=== PATIENT | female | born 1990 | race American Indian/Alaskan Native ===

== ENCOUNTER 2021-07-04 08:00 | Outpatient (CLI) | payer OTHER | END 2021-07-04 08:30 | disposition home or self-care (01) | LOC: PPH VACUNA 08:00 | PROVIDERS: ATTEND Emergency Medicine Pediatric Emergency Medicine | DX: Z23 Encounter for immunization (principal) ==

== ENCOUNTER 2022-11-28 09:05 | Outpatient (CLI) | payer OTHER | END 2022-11-28 09:12 | disposition home or self-care (01) | LOC: RAD 09:05 | DX: M54.2 Cervicalgia (principal); M99.01 Segmental and somatic dysfunction of cervical region; M54.6 Pain in thoracic spine; M99.02 Segmental and somatic dysfunction of thoracic region; M54.50 Low back pain, unspecified; M99.03 Segmental and somatic dysfunction of lumbar region; M62.830 Muscle spasm of back; M99.04 Segmental and somatic dysfunction of sacral region ==

== ENCOUNTER 2022-12-24 15:49 | Emergency (ER) | payer OTHER ==
[~2022-12-24] VITALS: Ht 170.2 cm; Wt 72.6 kg
== END 2022-12-24 17:30 | disposition home or self-care (01) ==
LOC: ER 15:49
DX: U07.1 COVID-19 (principal)

== ENCOUNTER 2023-02-27 01:30 | Outpatient (CLI) | payer OTHER | END 2023-02-27 01:40 | disposition home or self-care (01) | LOC: PPH VACUNA 01:30 | PROVIDERS: ATTEND Emergency Medicine Pediatric Emergency Medicine | DX: Z23 Encounter for immunization (principal) | CPT/HCPCS: 90686; G0008 ==

== ENCOUNTER 2023-11-25 07:05 | Outpatient (CLI) | payer OTHER ==
[2023-11-25 09:06] LABS: T4 FREE 1.22 NG/ML (0.76-1.46)
[2023-11-25 09:10] LABS: TSH < 0.005 uIU/mL (0.358-3.74)
== END 2023-11-25 07:06 | disposition home or self-care (01) ==
LOC: LAB 07:05
PROVIDERS: ATTEND Obstetrics & Gynecology
DX: E03.9 Hypothyroidism, unspecified (principal); E05.00 Thyrotoxicosis with diffuse goiter without thyrotoxic crisis or storm

== ENCOUNTER 2024-01-15 09:50 | Outpatient (CLI) | payer OTHER ==
[2024-01-15 10:11] LABS: HEMATOCRIT 37.7 % (36.0-45.00); HEMOGLOBIN 12.8 g/dL (12.0-15.00); MEAN CELL VOLUME 83.9 fL (80.00-100.00); MEAN CORPUSCULAR HEMOGLOBIN 28.6 pg (27.00-32.0); PLATELET COUNT 229 K/uL (150-450); RED BLOOD COUNT 4.49 M/uL (4.00-6.00); RED CELL DISTRIBUTION WIDTH 13.4 % (11.5-14.5)
[2024-01-15 10:34] LABS: INR 1.05; PARTIAL THROMBOPLASTIN TIME 30.2 SECONDS (22.0-34.0); PROTHROMBIN TIME 11.4 SECONDS (9.0-11.5)
== END 2024-01-15 09:55 | disposition home or self-care (01) ==
LOC: LAB 09:50
DX: R79.1 Abnormal coagulation profile (principal); Z01.812 Encounter for preprocedural laboratory examination

== ENCOUNTER 2024-02-12 09:33 | Outpatient (CLI) | payer OTHER ==
[2024-02-12 10:11] LABS: URINE BILIRRUBIN Negative (NEGATIVE); URINE BLOOD Negative; URINE COLOR Dark Yellow; URINE GLUCOSE Negative (NEGATIVE); URINE KETONE Negative (NEGATIVE); URINE LEUKOCYTE Trace; URINE NITRATE Negative; URINE PROTEIN Trace (NEGATIVE); URINE UROBILINOGEN 0.2 E.U./dl
[2024-02-12 10:16] LABS: URINE BACTERIA 1635.3 uL (0.0-1933); URINE EPITHELIAL CELLS 72.9 uL (0.0-38.8); URINE RBC 16.6 uL (0.0-20.8); URINE WBC 33.3 uL (0.0-23.2)
[2024-02-12 10:22] LABS: URINE APPEARANCE CLEAR; URINE CAST 0.15 uL (0.0-1.40)
[2024-02-12 10:43] LABS: HEMATOCRIT 37.1 % (36.0-45.00); HEMOGLOBIN 12.8 g/dL (12.0-15.00); MEAN CELL VOLUME 83.6 fL (80.00-100.00); MEAN CORPUSCULAR HEMOGLOBIN 28.8 pg (27.00-32.0); MEAN CORPUSCULAR HGB CONC 34.4 g/dl (32.0-36.0); PLATELET COUNT 256 K/uL (150-450); RED BLOOD COUNT 4.44 M/uL (4.00-6.00); RED CELL DISTRIBUTION WIDTH 13.5 % (11.5-14.5)
[2024-02-12 11:32] LABS: ANION GAP 8 (10.0-20.0); BLOOD UREA NITROGEN 10 mg/dL (7-18); BUN CREA RATIO 13 (7.0-25.0); CALCIUM 8.7 mg/dL (8.5-10.1); CARBON DIOXIDE 29 mEq/L (21-32); CHLORIDE 108 mmol/L (98-107); CHOL HDL RATIO 3.3 (0-5.0); CHOLESTEROL 143 mg/dL (0-200); CREATININE SERUM 0.76 mg/dL (0.55-1.02); GFR 88.76; GLUCOSE FASTING 90 mg/dL (65-100); HDL 43 mg/dl (40-60); LDL 74 mg/dl (0-130); OSMOLALITY SERUM 280 MOSM/KG (275-295); POTASSIUM 3.72 mEq/L (3.5-5.1); SODIUM 141 mmol/L (136-145); TRIGLYCERIDES 130 mg/dL (0-150); VLDL 26 (0-39)
[2024-02-12 11:33] LABS: TSH < 0.005 uIU/mL (0.358-3.74)
== END 2024-02-12 09:34 | disposition home or self-care (01) ==
LOC: LAB 09:33
PROVIDERS: ATTEND Internal Medicine
DX: N39.0 Urinary tract infection, site not specified (principal); R73.09 Other abnormal glucose; E78.5 Hyperlipidemia, unspecified; Z13.29 Encounter for screening for other suspected endocrine disorder; R79.9 Abnormal finding of blood chemistry, unspecified; D50.9 Iron deficiency anemia, unspecified; Z13.1 Encounter for screening for diabetes mellitus; Z13.220 Encounter for screening for lipoid disorders; R94.6 Abnormal results of thyroid function studies; Z13.228 Encounter for screening for other metabolic disorders

== ENCOUNTER 2024-02-18 09:46 | Outpatient (CLI) | payer OTHER | END 2024-02-18 10:00 | disposition home or self-care (01) | LOC: PPH VACUNA 09:46 | PROVIDERS: ATTEND Emergency Medicine Pediatric Emergency Medicine | DX: Z23 Encounter for immunization (principal) ==

== ENCOUNTER 2024-06-10 07:29 | Outpatient (CLI) | payer OTHER | END 2024-06-10 07:30 | disposition home or self-care (01) | LOC: NUCLEAR 07:29 | PROVIDERS: ATTEND Internal Medicine | DX: E05.90 Thyrotoxicosis, unspecified without thyrotoxic crisis or storm (principal) ==

== ENCOUNTER → 2024-06-11 07:18 | Outpatient (CLI) | payer OTHER | END | disposition home or self-care (01) | LOC: NUCLEAR 07:00 | PROVIDERS: ATTEND Internal Medicine | DX: E05.90 Thyrotoxicosis, unspecified without thyrotoxic crisis or storm (principal) ==

== ENCOUNTER → 2024-07-09 08:42 | Outpatient (CLI) | payer OTHER ==
[2024-07-09 09:26] LABS: HEMATOCRIT 34.7 % (36.0-45.00); HEMOGLOBIN 12.5 g/dL (12.0-15.00); MEAN CELL VOLUME 83.7 fL (80.00-100.00); MEAN CORPUSCULAR HEMOGLOBIN 30.1 pg (27.00-32.0); PLATELET COUNT 232 K/uL (150-450); RED BLOOD COUNT 4.15 M/uL (4.00-6.00)
[2024-07-09 10:52] LABS: ALBUMIN 3.7 gm/dL (3.4-5.0); BILIRUBIN TOTAL 0.35 mg/dL (0.3-1.2); CALCIUM 8.6 mg/dL (8.5-10.1); CHOL HDL RATIO 3.1 (0-5.0); CREATININE SERUM 0.84 mg/dL (0.55-1.02); GFR 79.08; GLOBULINA 3.7 G/DL (2.4-3.5); POTASSIUM 4.05 mEq/L (3.5-5.1); T4 FREE 0.88 NG/ML (0.76-1.46); TOTAL PROTEIN 7.4 gm/dL (6.4-8.2)
[2024-07-09 10:58] LABS: TSH 0.278 uIU/mL (0.358-3.74)
== END | disposition home or self-care (01) ==
LOC: LAB 08:42
PROVIDERS: ATTEND Internal Medicine
DX: E11.65 Type 2 diabetes mellitus with hyperglycemia (principal); E03.8 Other specified hypothyroidism; E78.5 Hyperlipidemia, unspecified; I10 Essential (primary) hypertension; E03.9 Hypothyroidism, unspecified; E11.8 Type 2 diabetes mellitus with unspecified complications

== ENCOUNTER 2024-10-12 07:36 | Outpatient (CLI) | payer OTHER ==
[2024-10-12 08:02] LABS: BASO % 0.3 % (0.1-1.2); EOS # 0.13 (0.04-0.54); EOS % 2.1 % (0.7-7.0); HEMATOCRIT 35.9 % (34.1-44.9); LYMPH # 1.82 (1.18-3.74); LYMPH % 29.3 % (19.3-53.1); MEAN CORPUSCULAR HEMOGLOBIN 28.2 pg (25.6-32.2); MONO % 6.4 % (4.7-12.5); NEUT # 3.83 (1.56-6.13); NEUT % 61.7 % (34.0-71.1); PLATELET COUNT 250 K/uL (163-369); RED BLOOD COUNT 4.25 M/uL (3.93-5.22); RED CELL DISTRIBUTION WIDTH 11.7 % (11.6-14.4)
[2024-10-12 08:54] LABS: PH,URINE 5.5 (5.0-8.0); URINE APPEARANCE Clear; URINE BILIRRUBIN Negative (NEGATIVE); URINE BLOOD Negative; URINE COLOR Yellow; URINE GLUCOSE Negative (NEGATIVE); URINE KETONE Trace (NEGATIVE); URINE LEUKOCYTE Negative; URINE NITRATE Negative; URINE PROTEIN Trace (NEGATIVE); URINE UROBILINOGEN 0.2 E.U./dl
[2024-10-12 08:55] LABS: CALCIUM 8.7 mg/dL (8.5-10.1); CHOL HDL RATIO 3.5 (0-5.0); CREATININE SERUM 0.76 mg/dL (0.55-1.02); GFR 88.19; POTASSIUM 3.81 mEq/L (3.5-5.1)
[2024-10-12 08:58] LABS: URINE BACTERIA 50.1 uL (0.0-1933); URINE EPITHELIAL CELLS 37.5 uL (0.0-38.8); URINE RBC 8.9 uL (0.0-20.8); URINE WBC 16.3 uL (0.0-23.2)
[2024-10-12 09:02] LABS: URINE CAST 0.29 uL (0.0-1.40)
[2024-10-12 09:11] LABS: TSH 0.009 uIU/mL (0.358-3.74)
== END 2024-10-12 07:40 | disposition home or self-care (01) ==
LOC: LAB 07:36
DX: E78.5 Hyperlipidemia, unspecified (principal); D50.9 Iron deficiency anemia, unspecified; R79.89 Other specified abnormal findings of blood chemistry; Z13.220 Encounter for screening for lipoid disorders; N39.0 Urinary tract infection, site not specified; R94.6 Abnormal results of thyroid function studies; E07.9 Disorder of thyroid, unspecified

== ENCOUNTER 2024-11-25 09:26 | Outpatient (CLI) | payer OTHER ==
[2024-11-25 10:06] LABS: BASO % 0.4 % (0.1-1.2); EOS # 0.08 (0.04-0.54); EOS % 1.5 % (0.7-7.0); LYMPH # 1.86 (1.18-3.74); LYMPH % 34.5 % (19.3-53.1); MEAN PLATELET VOLUME 9.70 fl (9.4-12.4); MONO # 0.33 (0.24-0.82); MONO % 6.1 % (4.7-12.5); NEUT # 3.09 (1.56-6.13); NEUT % 57.3 % (34.0-71.1); RED CELL DISTRIBUTION WIDTH 11.9 % (11.6-14.4)
[2024-11-25 11:14] LABS: ALT/SGPT 16.0 U/L (12-78); AST/SGOT 6.0 U/L (15-37); BILIRUBIN TOTAL 0.34 mg/dL (0.3-1.2); BUN CREA RATIO 14.0 (7.0-25.0); CREATININE SERUM 0.76 mg/dL (0.55-1.02); GFR 88.19; GLOBULINA 3.6 G/DL (2.4-3.5); GLUCOSE FASTING 96.0 mg/dL (65-100); OSMOLALITY SERUM 282.0 MOSM/KG (275-295); T4 FREE 0.86 NG/ML (0.76-1.46)
[2024-11-25 11:17] LABS: TSH 0.104 uIU/mL (0.358-3.74)
== END 2024-11-25 09:28 | disposition home or self-care (01) ==
LOC: LAB 09:26
PROVIDERS: ATTEND Internal Medicine
DX: E03.8 Other specified hypothyroidism (principal); E78.5 Hyperlipidemia, unspecified; I10 Essential (primary) hypertension; E11.65 Type 2 diabetes mellitus with hyperglycemia

== ENCOUNTER 2024-11-25 09:58 | Outpatient (CLI) | payer OTHER | END 2024-11-25 10:04 | disposition home or self-care (01) | LOC: RAD 09:58 | DX: M99.01 Segmental and somatic dysfunction of cervical region (principal); M99.02 Segmental and somatic dysfunction of thoracic region; M99.03 Segmental and somatic dysfunction of lumbar region ==

== ENCOUNTER 2025-03-03 10:28 | Outpatient (CLI) | payer OTHER | END 2025-03-03 10:38 | disposition home or self-care (01) | LOC: PPH VACUNA 10:28 | PROVIDERS: ATTEND Emergency Medicine Pediatric Emergency Medicine | DX: Z23 Encounter for immunization (principal) ==